=== PATIENT | male | born 1960 | race Caucasian/White ===

== ENCOUNTER 2021-10-16 10:40 | Emergency (ER) | payer MEDICAID, OTHER ==
[~2021-10-16] VITALS: Ht 177.8 cm; Wt 63.5 kg
[~2021-10-16 10:40] MED LIST: CETI10TA93; IBUP800T41; ONDA-101 OR; RANI300T; [UNRECOGNIZED DRUG - CODE]; advair; promethazine
[2021-10-16] MEDS ORDERED: SODIUM CHLORIDE 0.9% 1,000 ML IVB ONE ×2 (11:00→12:30)
[2021-10-16] MEDS ORDERED: METOCLOPRAMIDE HCL 5MG/ml INJ 2ml VIAL IV ONE (11:00)
[2021-10-16] MEDS ORDERED: KETOROLAC TROMETH 30 MG/ML 1ML VIAL IV ONE (11:00)
[2021-10-16 11:43] LABS: Albumin 2.8 g/dL (3.4-5.0); BUN/Creatinine Ratio 46.9; Magnesium 2.9 mg/dL (1.6-2.6); Potassium 4.9 mmol/L (3.5-5.1)
[2021-10-16 11:52] LABS: Bilirubin, Total 0.4 mg/dL (0.2-1.0)
[2021-10-16 12:58] LABS: Basophils # (auto) 0 10 ^3/uL (0-0.2); Eosinophils # (auto) 0 10 ^3/uL (0-0.8); Lymphocytes % (auto) 7.3 % (10.0-50.0); Mean Corpuscular Hemoglobin 21.3 pg (28.0-32.0); Monocytes # (auto) 1.3 10 ^3/uL (0-1.3); Red Blood Cells 4.71 10^6/uL (4.5-5.90)
[2021-10-16 13:00] LABS: Basophils % (auto) 0.3 % (0.0-2.0); Hematocrit 33.6 % (41.0-53.0); Mean Corpuscular Hgb Conc. 29.8 g/dL (32.0-36.0); Mean Corpuscular Volume 71.5 fL (80.0-100.0); Monocytes % (auto) 8.8 % (0.0-12.0); Neutrophils % (auto) 83.6 % (37.0-80.0); Red Cell Distribution Width 17.7 % (11.8-14.3); White Blood Cell 14.3 10^3/uL (4.4-10.8)
[2021-10-16] MEDS ORDERED: cefTRIAXone 1GM/50ML D5W 50 ML IV ONE (18:45)
[2021-10-16 19:09] LABS: Urine Bacteria FEW /hpf (None Seen); Urine Blood Negative /uL (Negative); Urine Hyaline Cast MOD /lpf (0 - 2); Urine Mucus FEW (None Seen); Urine Specific Gravity 1.019 (1.001-1.035); Urine WBC 5 /hpf (0 - 3)
[2021-10-19] MEDS ORDERED: FAMOTIDINE 20 MG TAB PO ONE ×2 (21:30→22:30)
[2021-10-20 14:28] VITALS: BP 110/63
== END 2021-10-20 17:30 | disposition home or self-care (01) ==
LOC: ER 10:40 → EDBD 10:40 → ER 10-20 17:30
DX: I12.9 Hypertensive chronic kidney disease with stage 1 through stage 4 chronic kidney disease, or unspecified chronic kidney disease (principal); N18.30 Chronic kidney disease, stage 3 unspecified; D63.1 Anemia in chronic kidney disease; E44.0 Moderate protein-calorie malnutrition; J44.9 Chronic obstructive pulmonary disease, unspecified; K21.9 Gastro-esophageal reflux disease without esophagitis; Z86.73 Personal history of transient ischemic attack (TIA), and cerebral infarction without residual deficits; Z68.20 Body mass index [BMI] 20.0-20.9, adult; Z59.00 Homelessness unspecified; Z87.891 Personal history of nicotine dependence
CPT/HCPCS: 36415; 71045; 74176; 80053; 81001; 83690; 83735; 85025; 93005; 96361; 96365; 99285; J0696; J7030